=== PATIENT | female | born 1935 | race Caucasian/White ===

== ENCOUNTER 2016-04-25 20:07 | Emergency (ER) | payer MEDICARE, MEDICAID ==
[2016-04-25] MEDS ORDERED: SYNTHROID0.075 MG/T PO (20:22)
[2016-04-25] MEDS ORDERED: REMERON30 M1 PO (20:23)
[2016-04-25] MEDS ORDERED: ASPIRIN E.C. 8181 MG PO (20:25)
[2016-04-25] MEDS ORDERED: CALCIUM 600 PLU1 TAB PO (20:27)
[2016-04-25] MEDS ORDERED: ARICEPT10 M1 PO (20:27)
[2016-04-25] MEDS ORDERED: KRILL OIL 3001 EACH PO (20:29)
[2016-04-25] MEDS ORDERED: ZOCOR20 M1 PO (20:29)
[2016-04-25] MEDS ORDERED: NAMENDA XR28 MG PO (20:30)
[2016-04-25] MEDS ORDERED: ULTRAM50 M1 PO (20:30)
[2016-04-25] MEDS ORDERED: NORCO 325 MG-51 TA1 PO (20:32)
[2016-04-25 23:05] VITALS: BP 139/70
== END 2016-04-25 23:05 ==
LOC: ED 20:07
DX: N39.0 Urinary tract infection, site not specified (principal)
CPT/HCPCS: A4353

== ENCOUNTER 2018-01-26 09:49 | Emergency (ER) | payer MEDICARE, MEDICAID ==
[~2018-01-26 09:49] MED LIST: ARICEPT10 M1 PO; ASPIRIN E.C. 8181 MG PO; CALCIUM 600 PLU1 TAB PO; KRILL OIL 3001 EACH PO; MIRTAZAPINE7.5 M1 PO; NAMENDA XR28 MG PO; NORCO 325 MG-51 TA1 PO; SYNTHROID0.05 MG PO; ULTRAM50 M1 PO; ZOCOR20 M1 PO
[2018-01-26 09:57] VITALS: BP 186/68
[2018-01-26 11:07] LABS: URINE APPEARANCE HAZY; URINE BILIRUBIN NEGATIVE (NEGATIVE); URINE BLOOD TRACE (NEGATIVE); URINE COLOR YELLOW; URINE GLUCOSE NEGATIVE (NEGATIVE); URINE KETONE NEGATIVE (NEGATIVE); URINE LEUKOCYTE ESTERASE 1+ (NEGATIVE); URINE NITRATE NEGATIVE (NEGATIVE); URINE PROTEIN(semi-quant) TRACE mg/dL (NEGATIVE); URINE UROBILINOGEN NORMAL (NORMAL); URINE WBC 16-30 /hpf (0-3)
[2018-01-26 11:55] LABS: EOS # 0.1 (0.04-0.40); EOS % 0.9 % (1.0-5.0); HEMATOCRIT 43.3 % (37.0-47.0); HEMOGLOBIN 14.1 g/dL (12.5-16.0); LYMPH# 2.5 (1.50-4.00); MEAN CELL VOLUME 98 fl (78-100); MEAN CORPUSCULAR HEMOGLOBIN 32 pg (27-31); MEAN CORPUSCULAR HGB CONC 33 g/dL (33-37); MEAN PLATELET VOLUME 9.5 fl (7.4-10.4); MONO # 0.9 (0.20-0.80); PLATELET COUNT 301 K/mm3 (130-400); RED BLOOD COUNT 4.43 M/mm3 (4.10-5.30); RED CELL DISTRIBUTION WIDTH 14.9 % (11.5-14.5); WHITE BLOOD COUNT 13.4 K/mm3 (4.8-10.8)
[2018-01-26 12:08] LABS: NEU # 9.8 (1.40-6.50)
[2018-01-26 12:09] LABS: ALBUMIN 4.2 g/dL (3.5-5.0); CALCIUM 9.9 mg/dL (8.4-10.2); POTASSIUM 3.7 mmol/L (3.6-5.0); TOTAL BILIRUBIN 0.5 mg/dL (0.2-1.3); TOTAL PROTEIN 7.2 g/dL (6.3-8.2)
[2018-01-26] MEDS ORDERED: ARICEPT10 M1 PO (12:29)
[2018-01-26] MEDS ORDERED: TOPCARE LAXATIVE5 MG PO (12:31)
[2018-01-26] MEDS ORDERED: FUROSEMIDE20 MG PO (12:31)
[2018-01-26] MEDS ORDERED: MACROBID 100 M100 MG PO (16:42)
== END 2018-01-26 13:10 | disposition home or self-care (01) ==
LOC: ED 09:49
PROVIDERS: Nurse Practitioner Primary Care
DX: S09.90XA Unspecified injury of head, initial encounter (principal); N39.0 Urinary tract infection, site not specified; S01.01XA Laceration without foreign body of scalp, initial encounter; M25.552 Pain in left hip; M25.512 Pain in left shoulder; F03.90 Unspecified dementia, unspecified severity, without behavioral disturbance, psychotic disturbance, mood disturbance, and anxiety; R45.1 Restlessness and agitation; W19.XXXA Unspecified fall, initial encounter; Y92.129 Unspecified place in nursing home as the place of occurrence of the external cause; Z79.82 Long term (current) use of aspirin; F32.9 Major depressive disorder, single episode, unspecified
CPT/HCPCS: J2060